=== PATIENT | male | born 1990 | race Caucasian/White ===

== ENCOUNTER 2019-03-05 14:48 | Day surgery (SDC) | payer OTHER ==
[~2019-03-05] VITALS: Ht 180.3 cm; Wt 124.3 kg
[2019-03-05] VITALS (15 sets, daily range): BP systolic 110–147; BP diastolic 66–91; PULSE 94–115; RESP 13–25; Ht 180.3 cm; Wt 124.3 kg
[2019-03-05] MEDS ORDERED: LACTATED RINGER'S 1,000 ML IV SCH (16:00)
[2019-03-05] MEDS ORDERED: ROPIVACAINE 0.5 % 30 ML VIAL ONE ×2 (17:12→17:32)
[2019-03-05] MEDS ORDERED: POLYMYXIN/BACITRACIN 1L IRRIG ONE ×2 (17:12→18:23)
[2019-03-05] MEDS ORDERED: BACITRACIN/POLYMYXIN 28.35 GM OINT TOP ONE (17:13)
[2019-03-05] MEDS ORDERED: FENTAnyl 50 MCG/ML VIAL ONE (17:28)
[2019-03-05] MEDS ORDERED: MIDAZOLAM 1 MG/ML 2 ML INJ ONE (17:28)
[2019-03-05] MEDS ORDERED: DIPHENHYDRAMINE 50 MG INJ IV PRN (17:30)
[2019-03-05] MEDS ORDERED: ALBUTEROL 0.083% (NEB) 2.5 MG/3 ML AMP HHN PRN (17:30)
[2019-03-05] MEDS ORDERED: METOCLOPRAMIDE 10 MG INJ IV PRN (17:30)
[2019-03-05] MEDS ORDERED: HYDROmorphONE 1 MG/5 ML IV SYRINGE IV PRN ×3 (17:30)
[2019-03-05] MEDS ORDERED: ONDANSETRON 4 MG INJ IV PRN (17:30)
[2019-03-05] MEDS ORDERED: MEPERIDINE 25 MG INJ IV PRN (17:30)
[2019-03-05] MEDS ORDERED: FENTAnyl 50 MCG/ML VIAL IV PRN ×2 (17:30)
[2019-03-05] MEDS ORDERED: DESFLURANE 15 MIN ONE (17:32)
[2019-03-05] MEDS ORDERED: SUGAMMADEX SODIUM 200 MG/2 ML VIAL IV ONE (17:32)
[2019-03-05] MEDS ORDERED: morphine 2 MG INJ IV PRN (18:00)
[2019-03-05] MEDS ORDERED: KETOROLAC 30 MG INJ IV SCH (18:00)
[2019-03-05] MEDS ORDERED: SUCCINYLCHOLINE CHLORIDE 100 MG/5 ML SYG IV ONE (18:36)
[2019-03-05] MEDS ORDERED: CLINDAMYCIN 900 MG (PMX) 50 ML IVPB ONE (18:36)
[2019-03-05] MEDS ORDERED: ROCURONIUM 50 MG INJ ONE (18:36)
[2019-03-05] MEDS ORDERED: LIDOCAINE 100 MG SYRINGE ONE (18:36)
[2019-03-05] MEDS ORDERED: PROPOFOL 40 ML ONE (18:36)
[2019-03-05] MEDS: FENTAnyl 50 MCG/ML VIAL IV PRN ×2 (19:47→19:54)
== END 2019-03-05 21:10 | disposition home or self-care (01) ==
LOC: SDS 14:48
PROVIDERS: ATTEND Orthopaedic Surgery
DX: S82.61XD Displaced fracture of lateral malleolus of right fibula, subsequent encounter for closed fracture with routine healing (principal); S93.431D Sprain of tibiofibular ligament of right ankle, subsequent encounter; X58.XXXD Exposure to other specified factors, subsequent encounter
CPT/HCPCS: 27792; 27829; 73590; 82306; C1713; J1885; J2001; J2250; J2405; J2795; J3010; Z7512; Z7610